=== PATIENT | female | born 1990 | race Caucasian/White ===

== ENCOUNTER 2021-03-12 01:36 | Emergency (ER) | payer OTHER ==
[~2021-03-12] VITALS: Ht 152.4 cm; Wt 50.0 kg
--- NOTE | 2021-03-12 01:58 | ED Psychosocial ---
General Chief Complaint: Substance Abuse Stated Complaint: ETOH Source: EMS Exam Limitations: clinical condition (MILADYS WORTHINGTON MD) History of Present Illness Date Seen by Provider: Mar 12, 2021 Time Seen by Provider: 01:40 Initial Comments Patient is a 30-year-old female who was picked up by police and EMS at a local residence. History is obtained from EMS. They state that at the residence they picked patient up was a couple who brought her home from the bar this evening. The patient started acting strangely, crawling on the floor and growling and they called the police. Police responded and initially handcuffed her and then when it became apparent that she was very intoxicated EMS was called and transported her to the hospital. She vomited in the ambulance prior to arrival. On arrival the patient is obviously extremely intoxicated. She is not really speaking other than to say "I am sorry". Vital signs are stable, oxygen saturations 98% on room air. No respiratory distress. Blood sugar 143. She is not complaining of anything. Moving all extremities. No obvious external signs of trauma. She is to intoxicated to be able to answer questions at this time. We will try and maintain her safety while monitoring her to sober up a little. Review of the medical record shows the patient has never been to this facility before. Timing/Duration: this evening (MILADYS WORTHINGTON MD) Allergies and Home Medications Allergies Uncoded Allergies: sun screen (Allergy, Unknown, 03/12/21) Patient Home Medication List Home Medication List Reviewed: Yes (MILADYS WORTHINGTON MD) Review of Systems Constitutional: see HPI Review of systems unobtainable secondary to the patient's intoxicated state (MILADYS WORTHINGTON MD) Physical Exam Vital Signs - First Documented 03/12/21 01:37 Temp 36.3 Pulse 110 Resp 18 B/P (MAP) 106/50 (68) Pulse Ox 98 O2 Delivery Room Air (KUSHAL PATLE MD) Capillary Refill : (MILADYS WORTHINGTON MD) Height, Weight, BMI Height: '" Weight: lbs. oz. kg; BMI Method: General Appearance: thin HEENT: PERRL/EOMI Neck: full range of motion Respiratory: lungs clear, normal breath sounds, no respiratory distress, no accessory muscle use Cardiovascular: regular rate, rhythm, tachycardia Extremities: normal range of motion, no pedal edema Neurologic/Psychiatric: alert Appearance/Memory: disheveled, impaired recent memory, other (intoxicated, smells of alcohol) Thoughts/Hallucinations: incoherent Skin: normal color, warm/dry (MILADYS WORTHINGTON MD) Progress/Results/Core Measures Results/Orders Lab Results Laboratory Tests Test 03/12/21 01:49 03/12/21 07:16 03/12/21 07:36 Range/Units Glucometer 143 H 70-110 MG/DL Urine Opiates Screen NEGATIVE NEGATIVE Urine Oxycodone Screen NEGATIVE NEGATIVE Urine Methadone Screen NEGATIVE NEGATIVE Urine Propoxyphene Screen NEGATIVE NEGATIVE Urine Barbiturates Screen NEGATIVE NEGATIVE Ur Tricyclic Antidepressants Screen NEGATIVE NEGATIVE Urine Phencyclidine Screen NEGATIVE NEGATIVE Urine Amphetamines Screen NEGATIVE NEGATIVE Urine Methamphetamines Screen NEGATIVE NEGATIVE Urine Benzodiazepines Screen NEGATIVE NEGATIVE Urine Cocaine Screen NEGATIVE NEGATIVE Urine Cannabinoids Screen NEGATIVE NEGATIVE Urine Test NEGATIVE NEGATIVE (KUSHAL PATEL MD) My Orders Orders - KUSHAL PATEL MD Drug Screen Stat (Urine) (03/12/21 06:52) General/Regular (03/12/21 Breakfast) Hcg,Qualitative Urine (03/12/21 07:36) (KUSHAL PATEL MD) Vital Signs/I&O 03/12/21 01:37 Temp 36.3 Pulse 110 Resp 18 B/P (MAP) 106/50 (68) Pulse Ox 98 O2 Delivery Room Air (KUSHAL PATEL MD) Progress Progress Note #1: Time: 03:36 Progress Note sleeping soundly. No concerns. Will continue to monitor. Progress Note #2: Time: 05:22 Progress Note Attempted to rouse her - she is able to tell me "wait a minute" but wont really talk to me as of yet. Does not vocalize any complaints of pain or injury right now. Vital signs still stable. (MILADYS WORTHINGTON MD) Progress Note #1: Time: 06:55 Progress Note I assumed care of this patient from Dr. Worthington at shift change. She is now awake, alert, and oriented. 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 She does not recall events after that point. She does not drink often and states that it is not typical for her to have aggressive or odd behaviors when intoxicated. She was offered further work-up and she would like a drug screen performed. She wonders if she was given an illicit substance without her knowledge. Physically she feels okay and is able to tolerate oral liquids. Labs and IV fluids are therefore not being pursued. Progress Note #2: Time: 08:21 Progress Note Urine drug screen was negative. Patient remained stable. She is ready for discharge (KUSHAL PATEL MD) Departure Impression Primary Impression: Intoxication Additional Impressions: Agitation Vomiting Qualified Codes: R11.10 - Vomiting, unspecified Disposition: 01 HOME, SELF-CARE Condition: Improved Departure-Patient Inst. Decision time for Depature: 02:33 (MILADYS WORTHINGTON MD) Referrals: [facility],LOCAL PHYSICIAN (PCP) Primary Care Physician Patient Instructions: ALCOHOL AND SUBSTANCE ABUSE Add. Discharge Instructions: Drink plenty of clear liquids to day to stay well-hydrated. Gradually advance your diet with small quantities of bland food as tolerated. Follow up as needed with your primary care provider. Return to the ER for any new, concerning or emergent complaints. MILADYS WORTHINGTON MD Mar 12, 2021 01:58 KUSHAL PATEL MD Mar 12, 2021 07:00
[2021-03-12 07:39] LABS: AMPHETAMINE SCREEN, URINE NEGATIVE (NEGATIVE); BARBITURATE SCREEN URINE NEGATIVE (NEGATIVE); BENZODIAZEPINES SCREEN URINE NEGATIVE (NEGATIVE); CANNABINOID SCREEN, URINE NEGATIVE (NEGATIVE); COCAINE SCREEN URINE NEGATIVE (NEGATIVE); METHADONE STAT NEGATIVE (NEGATIVE); METHAMPHETAMINE SCREEN URINE S NEGATIVE (NEGATIVE); OPIATE SCREEN URINE NEGATIVE (NEGATIVE); OXYCODONE STAT NEGATIVE (NEGATIVE); PROPOXYPHENE STAT NEGATIVE (NEGATIVE); TRICYCLIC ANTIDEPRESSANTS SCRE NEGATIVE (NEGATIVE)
[2021-03-12 08:59] VITALS: BP 124/80
== END 2021-03-12 08:59 | disposition home or self-care (01) ==
LOC: EDBD 01:37 → ER 01:37
DX: F10.129 Alcohol abuse with intoxication, unspecified (principal); R45.1 Restlessness and agitation
CPT/HCPCS: 80306; 82947; 84703

== ENCOUNTER 2021-06-21 02:48 | Emergency (ER) | payer OTHER ==
--- NOTE | 2021-06-21 03:10 | ED General ---
General Stated Complaint: ETOH Source of Information: Patient Exam Limitations: No Limitations (ROSY FRIED) History of Present Illness Date Seen by Provider: Jun 21, 2021 Time Seen by Provider: 02:50 Initial Comments Patient presents to the ER by EMS from [facility] with chief complaint that she was drinking and becoming incoherent. When the patient arrived she is speaking garbled phrases in [place] and being evasive with answering. She is very concerned with what people think about her in the room but does not want to answer orienting questions. 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 She says she was out drinking along and does not have anybody to take her home. She denies having any pain nausea but does not answer any other probing questions. When asked if she has done anything besides alcohol tonight she perseverates on why a nurse walked out of her room. She states I feel disrespected. (ROSY FRIED) Allergies and Home Medications Allergies Uncoded Allergies: sun screen (Allergy, Unknown, 03/12/21) Patient Home Medication List Home Medication List Reviewed: Yes (ROSY FRIED) Review of Systems Review of Systems Constitutional: No chills, No diaphoresis EENTM: No ear discharge, No ear pain Respiratory: No cough, No short of breath Cardiovascular: No chest pain, No palpitations Gastrointestinal: No abdominal pain, No constipation, No diarrhea Genitourinary: No discharge, No dysuria Musculoskeletal: No back pain, No joint pain (ROSY FRIED) All Other Systems Reviewed Negative Unless Noted: Yes (ROSY FRIED) Past [id number] Hx Patient Social History Alcohol Use?: Yes Alcohol type: Beer (ROSY FRIED) Physical Exam Vital Signs Vital Signs - First Documented 06/21/21 02:50 Temp 36.4 Pulse 96 Resp 20 B/P (MAP) 111/87 (95) Pulse Ox 99 O2 Delivery Room Air (KUSHAL PATEL MD) Vital Signs Capillary Refill : (ROSY FRIED) Height, Weight, BMI Height: '" Weight: lbs. oz. kg; 21.00 BMI Method: General Appearance: No Apparent Distress, Anxious, Thin Eyes: Bilateral Eye Normal Inspection, Bilateral Eye PERRL, Bilateral Eye EOMI HEENT: PERRL/EOMI, Pharynx Normal, Moist Mucous Membranes Neck: Full Range of Motion, Normal Inspection Respiratory: Lungs Clear, Normal Breath Sounds, No Accessory Muscle Use, No Respiratory Distress Cardiovascular: Regular Rate, Rhythm, No Edema, Normal Peripheral Pulses Gastrointestinal: Normal Bowel Sounds, Non Tender, Soft Extremity: Normal Capillary Refill, Normal Inspection, No Pedal Edema Neurologic/Psychiatric: Alert, Other (Oriented to self but does not answer other orienting questions. Evasive with answers and perseverates on every time a staff member walks by rather than answering questions. She is able to string sentences together with mild amount of slurring of speech. Gesticulates wildly.) Skin: Normal Color, Warm/Dry (ROSY FRIED) Progress/Results/Core Measures Suspected Sepsis SIRS Temperature: Pulse: Respiratory Rate: Blood Pressure / Mean: (ROSY FRIED) Results/Orders Vital Signs/I&O 06/21/21 02:50 Temp 36.4 Pulse 96 Resp 20 B/P (MAP) 111/87 (95) Pulse Ox 99 O2 Delivery Room Air (KUSHAL PATEL MD) Vital Signs/I&O Capillary Refill : (ROSY FRIED) Progress Note : Time: 03:13 Progress Note Multiple attempts in different ways were made to communicate with the patient but she does appear to be intoxicated. She is not interested in any blood work or urinalysis at this time. She does not seem to be in any kind of acute distress. She has normal vital signs. We did provide her with a blanket and are going to encourage her to take a nap. She does not have any family or friends that accompany her from the bar. We will let her sober up and then reexamine her. We will do close contact and put her in her room directly across from the nursing station. No signs of head trauma. We reviewed her previous visit from February 2021 and she presented in pretty much the exact same way, by EMS, intoxicated and with normal vital signs. She was allowed to rest and after she sobered up she states she felt well enough to go home and so she discharged to home. As of yet she has not been significantly agitated or violent. (ROSY FRIED) Progress Note #1: Time: 07:28 Progress Note I assumed care of this patient from Dr. Fried at shift change. She has been sleeping quietly. I was able to wake her with some effort. She is responding but appears sleepy and a bit confused. She does not recall what happened last night. She does have a phone with her so that she can call someone to pick her up. We will give her a bit to wake up and orient herself. Progress Note #2: Time: 08:01 Progress Note Patient fell back asleep but is easily awakened by voice. She does not have anybody in town that can come pick her up. She states she prefers to walk home. She did demonstrate ability to get up on her own and to safely ambulate. She is able to respond to questions appropriately at this time. It appears that at some point she vomited a small amount of emesis on the floor. She states she feels fine right now and is not nauseated. We will make sure she can tolerate clear liquids before she is discharged. (KUSHAL PATEL MD) Departure Impression Primary Impression: Intoxication Additional Impression: Nausea & vomiting Qualified Codes: R11.2 - Nausea with vomiting, unspecified Disposition: 01 HOME, SELF-CARE Condition: Improved Departure-Patient Inst. Decision time for Depature: 08:02 (KUSHAL PATEL MD) Referrals: NO,LOCAL PHYSICIAN (PCP/Family) Primary Care Physician Patient Instructions: ALCOHOL AND SUBSTANCE ABUSE, Alcohol Intoxication ED Add. Discharge Instructions: Drink plenty of clear liquids today. Gradually advance your diet with small quantities of bland food as tolerated. You have been seen in this emergency room multiple times for alcohol intoxication. Please avoid drinking alcohol in excess and to intoxication. If you are unable to drink alcohol without avoiding intoxication, please abstain from alcohol. Some resources are attached to these discharge papers regarding resources for alcohol and substance abuse support and treatment. Call with questions or concerns. Return to the ER if you have worsening symptoms. ROSY FRIED Jun 21, 2021 03:10 KUSHAL PATEL MD Jun 21, 2021 07:29
[2021-06-21 08:13] VITALS: BP 115/85
== END 2021-06-21 08:13 | disposition home or self-care (01) ==
LOC: EDUNIT# 02:48 → ER 02:50
DX: F10.129 Alcohol abuse with intoxication, unspecified (principal)
CPT/HCPCS: 99283